=== PATIENT | female | born 1955 | race Caucasian/White ===

== ENCOUNTER 2018-03-11 18:37 | Observation (INO) ==
[2018-03-11] MEDS ORDERED: Ipratropium/Albuterol Neb 3 ML IH ONE (18:56)
--- NOTE | 2018-03-11 19:04 | Emergency Department Note ---
Disposition Clinical Impression: Chest pain Qualifiers: Chest pain type: unspecified Qualified Code(s): R07.9 - Chest pain, unspecified Disposition: Admitted As Inpatient Condition: Good General Adult HPI - General Chief complaint: ED Chest Pain Stated complaint: CP Time Seen by Provider: 03/11/18 18:50 Source: patient, EMS Limitations: no limitations Nursing Notes Reviewed: Yes Vital Signs Reviewed: Yes - History of Present Illness HPI Narrative: Patient presents for evaluation of chest pain that started approximately 1 hour ago. Patient was at work standing when she had sudden onset left-sided chest pain. Chest pain caused her to feel short of breath as well as diaphoretic. She states she was short of breath with trying to walk. She did rest and by the time EMS got there and put her on 2 L of nasal cannula symptoms did resolve. She was never reported is hypoxic. The patient states that she is not currently have chest pain. She describes it as a dental pain on the left side became worsening in nature until it was sharp and then spontaneously resolved. She does have a smoking history as well some mild COPD. She does not wear home oxygen. She does have a significant family history including a sister who had bypass surgery at 55. Parents received cardiac stents but unsure what age. She believes early 60s. She has not had any recent cardiac workup. Pain Scale: 1 - Related Data Home Medications Medication Instructions Recorded Confirmed No Known Home Drugs 03/11/18 03/11/18 Allergies Allergy/AdvReac Type Severity Reaction Status Date / Time No Known Allergies Allergy Verified 03/11/18 20:35 Review of Systems: CONSTITUTIONAL: Weakness fatigue and diaphoresis during episode. No weight loss , fever, chills, weakness or fatigue. HEENT: Eyes: No visual changes. Ears, Nose, Throat: No hearing loss, difficulty talking or unable to swallow. SKIN: No rash or itching. CARDIOVASCULAR: Chest pain RESPIRATORY: Shortness of breath during episode that resolved spontaneously. Associated with exertion. No cough or sputum production. GASTROINTESTINAL: No anorexia, nausea, vomiting or diarrhea. No abdominal pain or blood. GENITOURINARY: No burning on urination or hematuria. NEUROLOGICAL: No headache, dizziness, syncope, paralysis, ataxia, numbness or tingling in the extremities. No change in bowel or bladder control. MUSCULOSKELETAL: No muscle pain, back pain, joint pain or stiffness. Past Medical History - Past Medical History Medical history: Reports: hyperlipidemia Psychiatric history: Reports: no psych history - Social History Smoking Status: Current every day smoker Smokeless Tobacco Status: No Alcohol use: Reports: none Drug use: Reports: none Physical Exam General: Well appearing, nontoxic, no acute distress Head: Normocephalic Atraumatic Eyes: PERRL, EOMI ENT: Airway patent, no stridor Neck: supple, no meningismus Chest: Lungs clear to auscultation bilateral Cardiac: Regular rate and rhythm, no murmurs, rubs or gallops Abdomen: soft, nontender, nondistended; no guarding, rebound, or tenderness to percussion Musculoskeletal: Calves symmetric, nontender, no palpable cord Skin: No rash, normal skin tone Neuro: Alert and Oriented to person, place, and time; No focal deficit - General Limitations: no limitations General appearance: alert, in no apparent distress Course Course Narrative: Received aspirin by EMS. - Reevaluation(s) Reevaluation #1: Patient remains chest pain-free for 3 throughout her entire visit. She states that the albuterol did help her breathing however she is not planning of shortness of breath on initial exam I tried to see if it would open up her lungs which it did not. No worsening wheezing or improvement in air movement. Patient will be admitted for further evaluation of chest pain rule out. Further breathing treatments and steroids have not been provided as the patient is not having shortness of breath and her initial complaint did not include the similar with COPD exacerbation. - Consultations Consultation #1: Discussed with hospitalist. Patient did receive aspirin by EMS. Patient accepted for admission. Vital Signs Temperature 98.7 F 03/11/18 18:42 Pulse Rate 78 03/11/18 18:42 Respiratory Rate 18 03/11/18 18:42 Blood Pressure 143/81 03/11/18 18:42 O2 Sat by Pulse Oximetry 99 03/11/18 18:42 Temperature 98.7 F 03/11/18 18:42 Pulse Rate 78 03/11/18 18:42 Respiratory Rate 18 03/11/18 18:42 Blood Pressure 143/81 03/11/18 18:42 O2 Sat by Pulse Oximetry 97 03/11/18 18:47 Oxygen Delivery Oxygen Delivery Nasal Cannula Medical Decision Making - Medical Records Medical records reviewed: Yes I reviewed the patient's medical records. - Lab Data Lab results reviewed: Yes I reviewed the patient's lab results. - Radiology Data Radiology results reviewed: Yes I reviewed the patient's radiology results. - EKG Data EKG #1 EKG attestation: Yes I reviewed and interpreted this EKG. EKG results narrative: Omi: EKG shows sinus rhythm with ventricular rate of 87. DE interval 144. QRS 84. QTC 406. Patient has no significant ST elevations or depressions. No previous EKG for comparison.
[2018-03-11 19:13] LABS: Basophils % 0.5 %; Eosinophils # 0.1 K/mcL (0.0-0.6); Hematocrit 40.2 % (35.3-44.9); Hemoglobin 13.3 g/dL (11.5-15.4); Immature Granulocytes % 0.2 % (0-4); Lymphocytes # 1.3 K/mcL (0.6-4.6); Mean Corpuscular HGB Conc 33.1 g/dL (31.6-35.5); Mean Corpuscular Hemoglobin 30.4 pg (28.0-33.3); Mean Corpuscular Volume 91.8 fL (83.0-100.0); Mean Platelet Volume 10.3 fL (9.4-12.4); Monocytes # 0.3 K/mcL (0.0-1.3); Monocytes % 5.9 %; Platelet Count 177 K/mcL (140-400); Red Blood Count 4.38 M/mcL (3.82-4.97); Red Cell Distribution Width 13.7 % (11.5-14.5); Segmented Neutrophils % 69.4 %
[2018-03-11 19:21] LABS: INR 1.1; Prothrombin Time 12.1 Seconds (9.4-12.1)
[2018-03-11 19:23] LABS: Activated Partial Thrombo Time 34.4 Seconds (26.0-36.0)
[2018-03-11 19:33] LABS: Troponin I < 0.03 ng/mL (< 0.04)
[2018-03-11 19:34] LABS: BUN/Creatinine Ratio 20 (6-26); Blood Urea Nitrogen 16 mg/dL (8-23); Calcium 9.4 mg/dL (8.6-10.3); Carbon Dioxide 25 mEq/L (23-29); Chloride 110 mEq/L (98-107); Glucose 111 mg/dL (70-105); Osmolality,Calculated 290 (280-300); Potassium 3.7 mEq/L (3.5-5.1); Sodium 139 mEq/L (136-145); eGFR For Non-African Americans > 60 (> 60)
[2018-03-12] MEDS ORDERED: Naloxone 0.4 MG/ML INJ IVP PRN (03:26)
--- NOTE | 2018-03-12 03:34 | Internal Med History&Physical ---
Date of Encounter: 03/12/18 Time of Encounter: 02:40 Internal Medicine - H&P: HPI Chief complaint: Chest pain Admitted From: Home Plans for Post Hospital Care: Home History of present illness: Ms. Braga is a 62 year old female Patient states she was at work when she began having sharp pains in her chest. 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 She denies heavy lifting. She says the pain does not radiate and she has had pain like this in the past the last time over 20 years ago. The pain lasted for about an hour associated with shortness of breath and was not relieved by resting. Her work notified EMS who then transported her to the hospital. In the ER EKG did not show any acute changes, d-dimer was not elevated, chest x-ray was not abnormal, and troponins were not elevated. Patient does have a history of COPD and is a heavy smoker, smoking 1 pack per day for many years. She has a past medical history of hyperlipidemia but does not take any medications because she cannot afford it without insurance. She was admitted to the hospital for further monitoring Currently she is pain-free resting comfortably in bed. She has no complaints. Past Med Surg Social Fam HX - Past Medical History Medical history: hyperlipidemia Psychiatric history: no psych history - Past Surgical History Surgical History: , hysterectomy - Social History Smoking Status: Current every day smoker Packs per day: 0.5-1 Smokeless Tobacco Status: No Alcohol use: none Drug use: none - Family History Father Hx Family Cancer: Yes (Brain) Mother Hx Family Cancer: Yes (Pancreatic) Internal Medicine - H&P: Meds No Known Home Drugs 03/11/18 [History] 3 Allergy/AdvReac Type Severity Reaction Status Date / Time No Known Allergies Allergy Verified 03/11/18 20:35 All Systems PM: A 10-system review of systems was performed and is negative for pertinent findings except as documented above in the HPI. - Constitutional Vitals: Temp Pulse Resp BP Pulse Ox 98.6 F 72 16 146/81 97 03/12/18 01:35 03/12/18 01:35 03/12/18 01:35 03/12/18 01:35 03/12/18 01:35 General appearance: Present: cooperative, A&O X 3, pleasant, no acute distress, answers questions appropriately - Head Head exam: Present: normal inspection - Eye Eye exam: Present: EOMI, normal appearance - Respiratory Respiratory exam: Present: CTAB. Absent: chest wall tenderness, respiratory distress, wheezes - Cardiovascular Cardiovascular exam: Present: RRR. Absent: diastolic murmur, systolic murmur - GI/Abdominal GI/Abdominal exam: Present: normal bowel sounds, soft. Absent: tenderness - Extremities Exam Extremities exam: Present: warm, radial pulses palpable and symmetrical. Absent : calf tenderness, pedal edema, tenderness - Neurological Exam Neurological exam: Present: no focal deficits, strengths equal and symetr throughout. Absent: facial droop, speech deficit - Skin Skin exam: Present: dry, normal color, warm Internal Med - H&P Results - Labs CBC & Chem 7: 03/11/18 19:00 03/11/18 19:00 Labs: Cardiac Enzymes 03/12/18 Range/Units 00:53 Troponin I < 0.03 (< 0.04) ng/mL - Assessment and plan (1) Chest pain Current Visit: Yes Status: Acute Assessment and plan: Patient's chest pain at this point has resolved. She had similar events like this in the past but it was over 20 years ago and did not last quite as long as this last episode. Continue to monitor on telemetry Serial troponins Consider echocardiogram or stress test in the morning Qualifiers: Chest pain type: unspecified Qualified Code(s): R07.9 - Chest pain, unspecified (2) Nicotine dependence Current Visit: Yes Status: Acute Assessment and plan: Patient is a heavy smoker and has smoked for many years. Recommend smoking cessation. Qualifiers: Qualified Code(s): F17.210 - Nicotine dependence, cigarettes, uncomplicated (3) History of hyperlipidemia Current Visit: Yes Status: Acute Assessment and plan: Patient does not take medication for this though she states that she should. She does not have insurance and cannot afford the medication. Consider social work consult for ways to help patient afford medication. Check lipid panel in the morning. (4) DVT prophylaxis Current Visit: Yes Status: Acute Assessment and plan: Subcutaneous heparin - Time Spent With Patient Total time spent is greater than 50% in coordination of care (as documented) at patient's floor/unit and/or counseling patient: Greater than 35 minutes
[2018-03-12] MEDS ORDERED: *HR* Heparin 5,000 UNIT/ML VIAL SQ SCH (06:00)
[2018-03-12 07:08] LABS: Hematocrit 37.3 % (35.3-44.9); Hemoglobin 12.3 g/dL (11.5-15.4); Mean Corpuscular Hemoglobin 30.2 pg (28.0-33.3); Mean Corpuscular Volume 91.6 fL (83.0-100.0); Mean Platelet Volume 10.8 fL (9.4-12.4); Platelet Count 170 K/mcL (140-400); Red Blood Count 4.07 M/mcL (3.82-4.97); Red Cell Distribution Width 13.9 % (11.5-14.5)
[2018-03-12 07:21] LABS: Chol/HDL Ratio 3.4 (0-4.9)
[2018-03-12 07:23] LABS: BUN/Creatinine Ratio 22 (6-26); Blood Urea Nitrogen 15 mg/dL (8-23); Calcium 8.7 mg/dL (8.6-10.3); Carbon Dioxide 25 mEq/L (23-29); Chloride 114 mEq/L (98-107); Glucose 91 mg/dL (70-105); Osmolality,Calculated 296 (280-300); Potassium 3.7 mEq/L (3.5-5.1); Sodium 143 mEq/L (136-145); eGFR For Non-African Americans > 60 (> 60)
--- NOTE | 2018-03-12 09:41 | Internal Med Progress Note ---
Date of Encounter: 03/12/18 Time of Encounter: 09:00 - Assessment and plan (1) Chest pain Current Visit: Yes Status: Acute Assessment and plan: Pt presented with chest pain -started at work 5-6pm yesterday, sharp in nature, no radiation -position didn't make it better or worse -located towards the midaxillary line on the left -was constant -pt is currently resting peacefully, chest pain has resolved Plan: -noncardiac chest pain - troponins <0.03, reproducable chest pain, most likely chondrocondritis -Stress test today, currently NPO -will consult cardiology if there is an abnormal test -control risk factors, counsled pt on tobacco cessation and controlling LDL/TG -pt has no hx of previous FL (2) Nicotine dependence Current Visit: No Status: Chronic Assessment and plan: Pt has been smoking tobacco for 45yrs, she smokes 1PPD Plan: -counsled pt on the risks of tobacco use -offered patches and gum, pt denies wanting help getting quit and states she will continue to smoke when she leaves hospital Qualifiers: Nicotine product type: cigarettes Substance use status: uncomplicated Qualified Code(s): F17.210 - Nicotine dependence, cigarettes, uncomplicated (3) History of hyperlipidemia Current Visit: No Status: Chronic Assessment and plan: LDL 106, cholesterol 106, TG 164 Plan: -counsled pt on following a low fat, low cholesterol heart healthy diet -counsled pt on using an anti lipid rx like Artorvastatin or Simvastatin, pt states she cannot afford medication (4) DVT prophylaxis Current Visit: Yes Status: Acute Assessment and plan: SQ heparin - Time Spent With Patient Total time spent is greater than 50% in coordination of care (as documented) at patient's floor/unit and/or counseling patient: less than 15 minutes - Subjective Interval history: Pt is seen at the bedside. She was admitted last night after a 5-6hr hx of chest pain that started yesterday at work. It was sharp and nonradiating in nature. The pain is reproducable on palpation of the left midaxillary area. Rest made it better. It was constant in nature. This has happened in the past and the other night she had a similar episode that lasted for about 5min Currently the pt has no chest pain. She is resting comfortably in the bed. She denies any CP, SOB, N/V/D , abd pain. -pain is still reproducible in the left midaxillary area -pt to go for stress test today -she currently has no complaints or concerns Fluids - none Electrolytes - all WNL Nutrition - currently NPO for stress test DVT prophylaxis - SQ heparin GI prophylaxis - not indicated - Constitutional Vitals: Temp Pulse Resp BP Pulse Ox 97.8 F 54 17 135/70 96 03/12/18 08:03 03/12/18 08:03 03/12/18 08:03 03/12/18 08:03 03/12/18 08:03 General appearance: Present: cooperative, A&O X 3, pleasant, no acute distress, answers questions appropriately - Neck Neck exam general surgery: Present: supple - Respiratory Respiratory exam: Present: decreased breath sounds - Cardiovascular Cardiovascular exam: Present: RRR, +S1, +S2 - GI/Abdominal GI/Abdominal exam: Present: normal bowel sounds, soft, no peritoneal signs - Skin Skin exam: Present: intact, warm Internal Medicine: Result - Labs CBC & Chem 7: 03/12/18 06:38 03/12/18 06:38 Labs: Short CBC 03/12/18 Range/Units 06:38 WBC 5.7 (4.3-11.1) K/mcL Hgb 12.3 (11.5-15.4) g/dL Hct 37.3 (35.3-44.9) % Plt Count 170 (140-400) K/mcL BMP 03/12/18 06:38 Sodium 143 Potassium 3.7 Chloride 114 H Carbon Dioxide 25 BUN 15 Creatinine 0.69 Glucose 91 Calcium 8.7 Cardiac Enzymes 03/12/18 03/12/18 Range/Units 00:53 06:38 Troponin I < 0.03 < 0.03 (< 0.04) ng/mL - ABG Interpretation ABG results: PT/INR, D-dimer PT 12.1 Seconds (9.4-12.1) 03/11/18 19:00 D-Dimer 309 ng/mLFEU (0-500) 03/11/18 19:00 Consult Discharge Plan - Plan Referrals: NONE,PCP [Primary Care Provider] -
--- NOTE | 2018-03-12 11:52 | Discharge Summary ---
<Randal Glaser S - Last Filed: 03/12/18 14:56> - NOTES TO OUTPATIENT PROVIDER Notes to Outpatient Provider: Pt reported ~60lb unintential weight loss in the last 6mos. -advised to follow up as outpatient basis for cancer screening Orders not resulted at time of discharge: Pending orders 03/12/18 09:37 SP exercise nuclear stress Routine 03/12/18 09:38 NM mich perf SPECT multi [NM] Routine Date of Encounter: 03/12/18 Time of Encounter: 08:30 - Discharge Diagnosis (1) Chest pain Priority: Primary Status: Resolved Qualifiers: Chest pain type: unspecified Qualified Code(s): R07.9 - Chest pain, unspecified (2) Nicotine dependence Priority: Secondary Status: Chronic Qualifiers: Nicotine product type: cigarettes Substance use status: uncomplicated Qualified Code(s): F17.210 - Nicotine dependence, cigarettes, uncomplicated (3) History of hyperlipidemia Priority: Secondary Status: Chronic (4) DVT prophylaxis Priority: Secondary Status: Acute Hospital course: Ms. Braga is a 62 year old female admitted last night after a 5-6hr hx of chest pain that started yesterday at work. It was sharp and nonradiating in nature. The pain is reproducable on palpation of the left midaxillary area. Rest made it better. It was constant in nature. This has happened in the past and the other night she had a similar episode that lasted for about 5min Currently the pt has no chest pain. She is resting comfortably in the bed. She denies any CP, SOB, N/V/D , abd pain. -pain is still reproducible in the left midaxillary area -pt to go for stress test today, results negative for ischemia -she currently has no complaints or concerns Stress test results - negative for ischemia D/c pt on protonix 40mg PO daily and lipitor 20mg PO daily, baby Aspirin 81mg PO daily -follow up with PCP for refills -counsled pt on quitting smoking, maintainging a heart healthy diet that is low in fat and cholesterol Discharge discussed with: patient Time spent discussing smoking cessation with patient: 3 to 10 minutes - Time Spent with Patient Total time spent providing and/or coordinating discharge services: Less than 30 minutes - Discharge Medications Prescriptions: Aspirin [Adult Aspirin] 81 mg PO DAILY 30 Days #30 tablet. Atorvastatin Calcium [Lipitor] 20 mg PO DAILY 30 Days #30 tablet Pantoprazole [Protonix] 40 mg PO DAILY 30 Days #30 vial Home Medications: Aspirin [Adult Aspirin] 81 mg PO DAILY 30 Days #30 tablet. 03/12/18 [Rx] Atorvastatin Calcium [Lipitor] 20 mg PO DAILY 30 Days #30 tablet 03/12/18 [Rx] Pantoprazole [Protonix] 40 mg PO DAILY 30 Days #30 vial 03/12/18 [Rx] Allergies/Adverse Reactions: 3 Allergy/AdvReac Type Severity Reaction Status Date / Time No Known Allergies Allergy Verified 03/11/18 20:35 Date of admission: 03/11/18 20:49 Primary care physician: PCP NONE Discharging clinician: Randal Glaser Anticipated date of discharge: 03/12/18 - Constitutional Vitals: Temp Pulse Resp BP Pulse Ox 98.4 F 72 20 154/80 99 03/12/18 10:39 03/12/18 10:39 03/12/18 10:39 03/12/18 10:39 03/12/18 10:39 General appearance: Present: cooperative, A&O X 3, pleasant, no acute distress, answers questions appropriately - Neck Neck exam general surgery: Present: supple - Respiratory Respiratory exam: Present: decreased breath sounds - Cardiovascular Cardiovascular exam: Present: RRR, +S1, +S2 - GI/Abdominal GI/Abdominal exam: Present: soft, no peritoneal signs - Skin Skin exam: Present: intact - Patient Status Disposition: Home, Self-Care Condition: Good Functional capacity at discharge: independent ambulation Overall status at discharge: patient is back to baseline - Discharge Instructions Follow Up With: NONE,PCP [Primary Care Provider] - Randal Glaser [Resident] - 03/17/18 (FU for refill on protonix/lipitor. FU on weight loss.) - Diet and Activity Activity: resume usual activities as tolerated Diet: low fat, low cholesterol <Cayden Gutierrez - Last Filed: 03/12/18 16:12> Orders not resulted at time of discharge: Pending orders 03/12/18 09:38 NM mich perf SPECT multi [NM] Routine Date of Encounter: 03/12/18 - Discharge Diagnosis (1) Chest pain Status: Resolved (2) Nicotine dependence Status: Chronic Qualifiers: Nicotine product type: cigarettes Substance use status: uncomplicated Qualified Code(s): F17.210 - Nicotine dependence, cigarettes, uncomplicated (3) History of hyperlipidemia Status: Chronic (4) DVT prophylaxis Status: Acute Hospital course: Ms. Braga is a 62 year old female - Time Spent with Patient Total time spent providing and/or coordinating discharge services: Date of admission: 03/11/18 20:49 Primary care physician: PCP NONE - Constitutional Vitals: Temp Pulse Resp BP Pulse Ox 98.4 F 72 20 154/80 99 03/12/18 10:39 03/12/18 10:39 03/12/18 10:39 03/12/18 10:39 03/12/18 10:39 - Attending Attestation Patient was seen and examined. I agree with the discharge summary as dictated above by the resident physician. Discharge plans and recommendations were made under my direct supervision.
--- NOTE | 2018-03-12 16:35 | Electrocardiograph Report ---
[address] [address] Test Date: 2018-03-11 Pat Name: Hermelinda Braga Department: 104 Room: 2A Gender: F [employer]: ENRIQUE : 1955 Requested By: [id number] Order Number: [id number] Reading MD: Collins De León Measurements Intervals [place] Rate: 87 P: 75 RI: 144 QRS: 65 QRSD: 84 T: 74 QT: 361 QTc: 406 Interpretive Statements SINUS RHYTHM MODERATE VOLTAGE CRITERIA FOR LVH, CONSIDER NORMAL VARIANT Electronically Signed On 03-12-2018 16:34:04 EDT by Collins De León
[2018-03-12 16:36] VITALS: BP 122/56
== END 2018-03-12 17:52 | disposition home or self-care (01) ==
LOC: EMEROO 18:37 → 2ANU 18:37
PROVIDERS: ADMIT Family Medicine; ATTEND Family Medicine